=== PATIENT | male | born 1985 | race African-American/Black ===

== ENCOUNTER 2023-10-08 17:24 | Emergency (ER) | payer OTHER, SELFPAY ==
--- NOTE | 2023-10-08 17:27 | ED.BACK ---
HPI - Back Pain/Injury General Chief Complaint: Back Pain/Injury Stated Complaint: Back/Hip Pain and Head Tenderness/Pain Time Seen by Provider: 10/08/23 17:26 Source: patient Mode of arrival: ambulatory Limitations: no limitations History of Present Illness HPI Narrative: Patient is a 38-year-old male who presents with right low back pain that radiates into the right hip for 1 week. Denies any new activities, exercises or injury. Denies any burning with urination, blood in urine, urinary changes. Also had area of tenderness on top of head today that resolved spontaneously. 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 Denies any fever, chills, nausea, vomiting, diarrhea. Has not taken anything for symptoms. Review of Systems Review of Systems: All systems reviewed & are unremarkable except as noted in HPI and below Constitutional: Constitutional: Denies body ache(s), Denies chills, Denies fatigue, Denies fever(s), Denies headache(s), Denies malaise and Denies weakness Eyes: Eyes: Denies blurry vision, Denies irritation and Denies loss of vision ENT: Denies otalgia, Denies headache(s), Denies nasal discharge, Denies sinus pain and Denies sore throat Cardiovascular: Cardiovascular: Denies chest pain, Denies irregular heart rhythm and Denies dyspnea Respiratory: Respiratory: Denies dyspnea Gastrointestinal: Gastrointestinal: Denies abdominal pain, Denies melena, Denies hematochezia, Denies diarrhea, Denies nausea and Denies vomiting Musculoskeletal: Musculoskeletal: Reports back pain, Denies myalgias and Denies arthralgias Integumentary/Breasts: Skin/Breast: Denies pruritus and Denies rash Neurologic: Denies headache(s), Denies loss of vision and Denies weakness Psychiatric: Psychiatric: Reports no additional psychiatric complaints Endocrine: Endocrine: Denies fatigue PMFSH Comments At time of signature, agree with nursing past medical, surgical, social and family history. There is no relevant family history pertinent to the presenting complaint. Exam Const: General: cooperative, healthy appearing, comfortable, no acute distress and well nourished Nutritional Appearance: well nourished Orientation/consciousness: patient oriented x3 Limitations: no limitations HENMT: Head: normal to inspection, normocephalic and atraumatic Ears: hearing grossly normal bilaterally and external ears normal Face/Nose/Sinus: Normal external nose present, normal facial exam and face symmetric Face and sinus: normal facial exam and face symmetric Mouth: Yes lip normal Eyes: General: appearance normal, both eyes and all related structures Alignment and Position: alignment normal and position normal Periorbital: periorbital findings normal Eyelids: eyelids normal Pupils: Equal, round and reactive pupils present EOM: EOMs intact bilaterally Neck: Neck: normal visual inspection, full ROM and supple Chest: Chest palpation & inspection: normal inspection of the chest Resp: Effort & Inspection: normal respiratory effort and able to speak in complete sentences Auscultation: clear to auscultation bilaterally Cardio: Rate: regular rate Rhythm: regular rhythm Heart sounds: S1 normal heart sound present and S2 normal heart sound present GI: Inspection: normal to inspection Back/Spine/Pelvis: Thoracic/Lumbar Spine: paraspinal muscle tenderness on the right in the lower lumbar, No thoracic spinal tenderness and No lumbar spinal tenderness Pelvis: no buttock ecchymosis, buttock tenderness on the right and no buttock swelling Sacroiliac joints: on the right tender to palpation Skin: General skin exam: normal color and no rashes or lesions noted Neuro: General: patient oriented x3 and moves all extremities Cranial nerves: Yes Equal, round and reactive pupils present Speech: normal speech Gait exam (Neuro): Normal gait present Extrem: General: normal to inspection, full ROM and no
[2023-10-08 17:40] VITALS: BP 142/102; PULSE 89; RESP 16; TEMP 37.1; O2SAT 100
[2023-10-08 17:53] VITALS: BP 126/90
== END 2023-10-08 17:51 | disposition home or self-care (01) ==
PROVIDERS: Emergency Provider Nurse Practitioner Family
DX: M54.31 Sciatica, right side (principal)
CPT/HCPCS: 99213; G0463

== ENCOUNTER 2023-11-03 09:01 | Emergency (ER) | payer OTHER, SELFPAY ==
--- NOTE | ~2023-11-03 | XR_ITS ---
EXAMINATION: XR lumbar spine 2-3V DATE: 11/03/2023 10:14 INDICATION: Low back pain radiating down the right thigh TECHNIQUE: Anteroposterior and lateral views of the lumbar spine, and cone-down lateral view of the l umbosacral junction were obtained. COMPARISON: 08/25/2018 FINDINGS: Alignment remains normal. No interval change in minimal likely physiologic anterior wedging at T12-L 2. Interval development of mild disc height loss at L4-L5. Bilateral hip and sacral iliac joint space s appear relatively preserved. Sacral arches are intact. IMPRESSION: 1. Mild lower lumbar spondylosis. Reviewed, dictated and finalized at location B.
[2023-11-03 09:13] VITALS: BP 144/98; PULSE 76; RESP 16; TEMP 36.8; O2SAT 100
--- NOTE | 2023-11-03 09:55 | ED.BACK ---
HPI - Back Pain/Injury General Chief Complaint: Back Pain/Injury Stated Complaint: Lower Back/Hip Pain Time Seen by Provider: 11/03/23 09:50 Source: patient, RN notes reviewed and old records reviewed Mode of arrival: ambulatory Limitations: no limitations History of Present Illness HPI Narrative: 38 year old male who [facility] with complaints of continued right sided lumbar back pain which goes into his buttocks and radiates around anterior aspect of his right thigh. Patient reports no known injury to back. Patient was seen on 10/08/2023 and was treated with Baclofen, and Lidocaine patches, did not receive the steroids.Patient reports that he takes muscle relaxers at night and he uses Lidocaine patches while he works. Patient reports no tingling or numbness to right leg reports dull throbbing pain in right lower back and into buttock. No saddle paraesthesia or any difficulty with bowel or bladder function. MD elicited complaint: back pain (right sided) Onset (ago): week(s) (4) Similar Symptoms Previously: Yes Quality: dull, aching and throbbing Location: right lower back Exacerbating factors: movement Treatments prior to arrival: other (muscle relaxer,Lidocaine patches, Tylenol) Work related injury: No Related Data Allergies Allergy/AdvReac Type Severity Reaction Status Date / Time No Known Allergies Allergy Verified 11/03/23 09:43 Review of Systems Review of Systems: CONSTITUTIONAL: Denies fever, chills, or sweats. CARDIOVASCULAR: Denies chest pain, palpitations, or edema. RESPIRATORY: Denies cough or dyspnea. GASTROINTESTINAL: Denies abdominal pain, nausea, vomiting, or diarrhea. GENITOURINARY: Denies dysuria or hematuria. SKIN: Denies rash or itching. MUSCULOSKELETAL: Reports right lumbar back pain which radiates to right buttocks and then around to anterior thigh mid aspect, or myalgia. NEUROLOGIC: Denies headache, numbness, or weakness. All systems reviewed & are unremarkable except as noted in HPI and below PMFSH Social History Social History Smoking status: Never smoker Alcohol intake: current Alcohol use details: social Living arrangements: with family Gender identity (if verbalized by the patient): Male Comments At time of signature, agree with nursing past medical, surgical, social and family history. There is no relevant family history pertinent to the presenting complaint Exam Narrative: GENERAL: Well-appearing, well-nourished, and in no acute distress. HEAD: Normocephalic, atraumatic. EYES: PERRLA and EOMI. NECK: Supple. No lymphadenopathy. CHEST: Clear to auscultation. No respiratory distress. SAO2 100% on room air HEART: Regular rate and rhythm. Distal pulses palpable and equal, cap refill <3 seconds ABDOMEN: Soft, nontender, nondistended, normal active bowel sounds, no palpable or pulsatile masses. No CVA tenderness MUSCULOSKELETAL: Normal range of motion and strength in all extremities; 5/5 strength with hip flexion and extension, dorsiflexion and extension, knee flexion and extension, plantar flexion and extension. Normal sensation in dermatomal distributions with sensitivity to light touch and pain. No midline back tenderness to palpation. No paraspinal tenderness. Transfers from lying to sitting to standing.cautiously SKIN: Warm, dry, no rash. No ecchymosis, erythema, open wounds to back. NEURO: No focal deficits. Alert and oriented x3. Reflexes intact. Normal gait. PSYCH: Normal mood and affect Course Course Emergency Course: Patient is aware of diagnosis, understands and agrees to treatment plan. Anticipatory guidance given. Patient agrees to follow-up as directed and is aware of reasons to seek care at the emergency department. Portions of this record may have been created with voice recognition software Level of Care: Express Care Visit Vital Signs Vital signs: Vital Signs Tem
== END 2023-11-03 10:50 | disposition home or self-care (01) ==
PROVIDERS: Emergency Provider Registered Nurse
DX: M54.31 Sciatica, right side (principal)
CPT/HCPCS: 72100; 99213; G0463

== ENCOUNTER 2023-12-24 11:22 | Emergency (ER) | payer OTHER, SELFPAY ==
--- NOTE | 2023-12-24 11:25 | ED.SKABFB ---
HPI - Skin/Abscess/Foreign Bdy General Chief complaint: Skin/Abscess/Foreign Body Stated complaint: Spider Bite Time Seen by Provider: 12/24/23 11:25 Source: patient Mode of arrival: ambulatory Limitations: no limitations History of Present Illness HPI narrative: Oswald is a 38-year-old male patient presenting to the clinic today with complaints of possible spider bite to his right forearm. He noticed this 2 days ago. He reports he does not know if it is a spider bite but is concerned about a brown recluse. He denies any fever, chills, or body aches. States that the area is very itchy. Has started applying triamcinolone cream that he had gotten from a friend. States that is helping the itching somewhat but is red and swollen. He denies any pain or burning. Related Data Allergies Allergy/AdvReac Type Severity Reaction Status Date / Time No Known Allergies Allergy Verified 12/24/23 11:27 Review of Systems Review of Systems: Pertinent positives per HPI. Patient denies any fever, chills, headache, visual changes, dizziness, cough, runny nose, sore throat, shortness of breath, chest pain, palpitations, nausea, vomiting, diarrhea, constipation, abdominal pain, or any urinary issues. PMFSH Social History Social History Smoking status: Never smoker Alcohol intake: current Alcohol use details: social Living arrangements: with family Gender identity (if verbalized by the patient): Male Comments At the time of my signature, I reviewed and agree with the nursing past medical, surgical, social, and family history. There is no relevant family history pertinent to the patient complaint. Exam Narrative: General: Well-developed, well nourished, in no apparent distress Head: Normocephalic, atraumatic. Cardio: Regular rate and rhythm, s1 and s2 normal, no murmur appreciated. Resp: Clear to auscultation bilaterally, no rhonchi, rales, wheezing or rubs. Integumentary: [place], warm, and dry, insect bite with localized redness and swelling with induration measuring approximately 3 x 2 without palpable abscess to the right distal forearm/wrist Course Course Emergency Course: Portions of this record may have been created with voice recognition software. Level of Care: Express Care Visit Vital Signs Vital signs: Vital Signs Temperature 36.3 C L 12/24/23 11:29 Pulse Rate 82 12/24/23 11:29 Respiratory Rate 16 12/24/23 11:29 Blood Pressure 133/80 12/24/23 11:29 Pulse Oximetry 100 12/24/23 11:29 Temperature 36.3 C L 12/24/23 11:29 Pulse Rate 82 12/24/23 11:29 Respiratory Rate 16 12/24/23 11:29 Blood Pressure 133/80 12/24/23 11:29 Pulse Oximetry 100 12/24/23 11:29 Vital signs reviewed MDM - Skin/Abscess/Foreign Bdy MDM Narrative Medical decision making narrative: At the time of visit patient is resting comfortably on the exam table. Patient appears to be nontoxic. Plan: I suspect patient has a insect bite with a general allergic reaction to the right forearm. Will give doxycycline to cover for a secondary infection. Patient may apply triamcinolone cream as directed. Supportive measures were discussed with the patient and they voiced understanding discharge instructions and agrees to treatment plan. Return precautions reviewed Differential Diagnosis Differential diagnosis: Likely abscess of skin or subcutaneous tissue, viral exanthem, urticaria, cellulitis, eczema, insect bites, impetigo and contact dermatitis Discharge Plan Discharge Clinical Impression: Insect bite Qualifiers: Encounter type: initial encounter Site of insect bite: forearm Laterality: right Qualified Code(s): S50.861A - Insect bite (nonvenomous) of right forearm, initial encounter Patient Disposition: Home, Self-Care Condition: Stable Instructions: Antibiotic Form, Insect Bite or Sting (ED), General Allergic Reaction (ED) Additiona
[2023-12-24 11:29] VITALS: BP 133/80; PULSE 82; RESP 16; TEMP 36.3; O2SAT 100
== END 2023-12-24 11:39 | disposition home or self-care (01) ==
PROVIDERS: Emergency Provider Nurse Practitioner Family; PCP Nurse Practitioner Family
DX: S50.861A Insect bite (nonvenomous) of right forearm, initial encounter (principal); W57.XXXA Bitten or stung by nonvenomous insect and other nonvenomous arthropods, initial encounter
CPT/HCPCS: 99213; G0463